=== PATIENT | female | born 1995 | race African-American/Black ===

== ENCOUNTER 2023-06-23 15:41 | Emergency (ER) | payer MEDICAID, OTHER ==
[~2023-06-23] VITALS: Ht 160 cm; Wt 94.1 kg
[2023-06-23 16:47] LABS: BASO # 0.1 10^3/uL (0.0-0.2); BASO % 0.6 % (0.0-1.0); EOS # 0.2 10^3/uL (0.0-0.5); EOS % 2.8 % (0.0-3.0); HEMOGLOBIN 12.3 g/dl (12.0-15.5); LYMPH # 2.4 10^3/uL (1.5-5.0); LYMPH % 27.2 % (24.0-44.0); MEAN CORPUSCULAR HEMOGLOBIN 31.3 pg (27.0-33.0); MEAN CORPUSCULAR HGB CONC 33.2 g/dl (32.0-36.5); MEAN CORPUSCULAR VOLUME 94.1 fl (80.0-96.0); MONO % 10.9 % (2.0-8.0); NEUTROPHILS # 5.1 10^3/uL (1.5-8.5); NEUTROPHILS % 58.3 % (36.0-66.0); PLATELET COUNT, AUTOMATED 228 10^3/uL (150-450); RED BLOOD COUNT 3.93 10^6/uL (4.00-5.40); WHITE BLOOD COUNT 8.7 10^3/uL (4.0-10.0)
[2023-06-23 17:15] LABS: HCG, SERUM QUANTITATIVE 10.4 MIU/ML (<4.2)
[2023-06-23 17:17] LABS: BLOOD UREA NITROGEN 8 MG/DL (9-23); CALCIUM LEVEL 8.8 MG/DL (8.5-10.1); CARBON DIOXIDE LEVEL 25 MMOL/L (20-31); CHLORIDE LEVEL 109 MMOL/L (98-107); CREATININE FOR GFR 0.65 MG/DL (0.55-1.30); GLOMERULAR FILTRATION RATE > 60.0 (>60); GLUCOSE, FASTING 85 MG/DL (60-100); SODIUM LEVEL 141 MMOL/L (136-145)
[2023-06-23] MEDS ORDERED: ACETAMINOPHEN 500 MG TAB PO ONE (17:25)
[2023-06-23 18:13] VITALS: BP 113/65; TEMP 98.4; O2SAT 99
[2023-06-23] MEDS ORDERED: IBUPROFEN 800 MG TAB PO ONE (18:35)
[2023-06-23] MEDS ORDERED: IBUP80TA PO (18:46)
== END 2023-06-23 18:52 | disposition home or self-care (01) ==
LOC: M ED 15:41
DX: O03.9 Complete or unspecified spontaneous abortion without complication (principal); Z91.041 Radiographic dye allergy status; Z91.018 Allergy to other foods